=== PATIENT | female | born 1990 | race American Indian/Alaskan Native ===

== ENCOUNTER 2018-08-21 01:36 | Emergency (ER) | payer BC, OTHER ==
[2018-08-21] MEDS ORDERED: IBUPROFEN PO STA (05:04)
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
[2018-08-21 08:01] LABS: HCG Qualitative,Urine Negative (Negative)
[2018-08-21 08:07] VITALS: BP 121/86
[2018-08-21] MEDS ORDERED: NORCO 5/325 PO ONE (09:00)
[2018-08-21] MEDS ORDERED: NORCO 5/325 ONE (09:04)
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
== END 2018-08-21 10:00 | disposition home or self-care (01) ==
LOC: ED 01:36
DX: S39.012A Strain of muscle, fascia and tendon of lower back, initial encounter (principal); H60.501 Unspecified acute noninfective otitis externa, right ear; V89.2XXA Person injured in unspecified motor-vehicle accident, traffic, initial encounter; Y93.89 Activity, other specified; Y92.488 Other paved roadways as the place of occurrence of the external cause; Y99.8 Other external cause status
CPT/HCPCS: 72100; 72131; 81025; 99284